=== PATIENT | female | born 1965 | race African-American/Black ===

== ENCOUNTER 2019-03-03 08:26 | Day surgery (SDC) | payer OTHER ==
[~2019-03-03 08:26] MED LIST: DIPRIVAN 10 MG/ML IV ONE; NACL 0.9% 1000 ML 1,000 ML IV SCH; WATER FOR IRRIG STERILE IR ONE; WATER FOR IRRIG STERILE ONE
--- NOTE | 2019-03-03 09:46 | Short Stay Summary ---
Short Stay Documentation Date of service: 03/03/19 Narrative H&P: Patient is a 53 yo female who presents for screening colonoscopy. Denies gi complaints at this time. No prior screening colonoscopy. - History H&P: obtained from office Past Medical History: other (no changes from H&P) Past Surgical History: Other (no changes) Social history: no significant social history - Allergies and Medications Current Medications: Allergies No Known Allergies Allergy (Verified 03/03/19 07:53) Home Medications Medication Instructions Recorded Confirmed Last Taken Type Simvastatin 20 mg PO DAILY 03/03/19 03/03/19 Unknown History Active Medications Sodium Chloride (Nacl 0.9% 1000 Ml) 1,000 mls @ 50 mls/hr IV DIRECT SHANTA Last Admin: 03/03/19 09:24 Dose: 50 mls/hr Documented by: - Physical exam General appearance: no acute distress Lungs: Clear to auscultation Heart: Regular rate, Normal S1, Normal S2 Gastrointestinal: normal - Brief post op/procedure progress note Date of procedure: 03/03/19 Pre-op diagnosis: screening colonoscopy Post-op diagnosis: other (internal hemorrhoids) Procedure: Colonoscopy Anesthesia: MAC Findings: Internal hemorrhoids, otherwise normal colonoscopy Surgeon: CORONA GARVEY Estimated blood loss: none Pathology: none Condition: stable - Disposition Condition at discharge: Good Disposition: DC-01 TO HOME OR SELFCARE Short Stay Discharge Plan Follow up with: HIRA REEVES MD [Primary Care Provider] - 7 Days
--- NOTE | 2019-03-03 09:48 | Operative Report ---
Operative Report Operative Report: Colonoscopy Procedure Note Date of procedure: 03/03/2019 Endoscopist: Timothy Aviles Pre-op diagnosis: Screening for colon cancer Post-op diagnosis: Internal hemorrhoids Anesthesia: MAC Complications: No immediate complications Estimated blood loss: None Procedure: After consent was obtained, the patient was placed in the left lateral decubitus position. The olympus colonoscope was inserted into the patient's rectum under direct vision, and advanced to the cecum without difficulty. The patient tolerated the procedure well. The views of the mucosa were good. The quality of prep was good. The patient's vital signs were monitored continuously throughout the procedure. Findings: Internal hemorrhoids were visualized on retro-flexion view. Otherwise, the colon appeared normal. Impression: 1. Internal hemorrhoids, otherwise normal colonoscopy Recommendations: -repeat colonoscopy in 10 years for screening purposes
--- NOTE | 2019-03-03 09:56 | Anesthesia Day of Surgery ---
Anesthesia Day of Surgery - Day of Surgery Patient Examined: Yes Patient H&P Reviewed: Yes Patient is NPO: Yes Bret's Test: N/A
--- NOTE | 2019-03-03 09:57 | Anesthesia Consultation ---
Anesthesia Consult and Med Hx - Airway Anesthetic Teeth Evaluation: Good ROM Head & Neck: Adequate Mental/Hyoid Distance: Adequate Mallampati Class: Class II Intubation Access Assessment: Probably Good - Pulmonary Exam CTA: Yes - Cardiac Exam Cardiac Exam: RRR - Pre-Operative Health Status ASA Pre-Surgery Classification: ASA2 Proposed Anesthetic Plan: General, MAC - Additional Comments Anesthesia Medical History Comments: Hypercholesteolemia
[2019-03-03] MEDS ORDERED: XYLOCAINE MPF 2% ONE (10:00)
[2019-03-03 10:31] VITALS: BP 129/86
--- NOTE | 2019-03-03 10:41 | Post Anesthesia Evaluation ---
- Post Anesthesia Evaluation Patient Participated: Yes Airway Patent: Yes Stable Respiratory Function: Yes Nausea/Vomiting: No Temp > 96.8F: Yes Pain Manageable: Yes Adequeate Hydration: Yes Anesthesia Complications: No Block Receding Appropriately: Not Applicable
== END 2019-03-03 08:27 | disposition home or self-care (01) ==
LOC: GIO 08:26
PROVIDERS: ATTEND Internal Medicine Gastroenterology
DX: Z12.11 Encounter for screening for malignant neoplasm of colon (principal); K64.8 Other hemorrhoids; E78.00 Pure hypercholesterolemia, unspecified; Z90.49 Acquired absence of other specified parts of digestive tract; Z98.890 Other specified postprocedural states
CPT/HCPCS: 45378; J2704; J7030